=== PATIENT | female | born 1965 | race Hispanic/Latino ===

== ENCOUNTER 2021-10-28 17:45 | Observation (INO) | payer BC, OTHER ==
[~2021-10-28] VITALS: Ht 167.6 cm; Wt 98.9 kg
[~2021-10-28 17:45] MED LIST: BIOT10004 PO; OMEP40CA21 PO
[2021-10-28 18:40] LABS: BASOPHILS % (AUTO) 0.4 % (0.0-5.0); HEMATOCRIT 31.6 % (36-48); MEAN CORPUSCULAR HEMOGLOBIN 28.9 pg (27.0-33.0); MEAN CORPUSCULAR HGB CONC 32.6 g/dL (32.0-36.0); MEAN CORPUSCULAR VOLUME 88.5 fL (79-99); MONOCYTES % (AUTO) 12.3 % (3.0-13.0); NEUTROPHILS % (AUTO) 41.9 % (40.0-77.0); PLATELET COUNT (AUTO) 254 K/uL (130-400); RED BLOOD CELL COUNT(AUTO) 3.57 MIL/uL (4.00-5.50); RED CELL DISTRIBUTION WIDTH 12.2 % (11.0-15.5); WHITE BLOOD COUNT (AUTO) 8.4 K/uL (4.8-10.8)
[2021-10-28 18:50] LABS: INR 1.01 (0.85-1.15)
[2021-10-28 18:51] LABS: PARTIAL THROMBOPLASTIN TIME 23.9 SEC (26.3-35.5)
[2021-10-28] MEDS ORDERED: OMEP20TA20 PO (18:51)
[2021-10-28] MEDS ORDERED: AMOX1TAB15 PO (18:51)
[2021-10-28] MEDS ORDERED: METR-172 PO (18:51)
[2021-10-28] MEDS ORDERED: MONT-39 PO (18:51)
[2021-10-28] MEDS ORDERED: LEVO100C4 PO (18:51)
[2021-10-28] MEDS ORDERED: ASPI-1197 PO (18:51)
[2021-10-28] MEDS ORDERED: FLUT1AER IH (18:51)
[2021-10-28 19:04] LABS: ALANINE AMINOTRANSFERASE 30 U/L (12-78); ASPARTATE AMINOTRANSFERASE 44 U/L (10-37); BILIRUBIN,TOTAL 0.3 mg/dL (0.2-1.0); CARBON DIOXIDE 31 mmol/L (21-32); CHLORIDE 105 mmol/L (101-111); CREATININE 0.7 mg/dL (0.5-1.5); GLOMERULAR FILTR. RATE CALC 91 mL/min (>60); GLUCOSE,RANDOM 104 mg/dL (70-105); POTASSIUM 3.3 mmol/L (3.5-5.1); SODIUM SERUM 142 mmol/L (136-145); TOTAL PROTEIN, SERUM 7.1 g/dL (6.0-8.3); UREA NITROGEN, BLOOD 19 mg/dL (7-18)
[2021-10-28 19:09] LABS: B-TYPE NATRIURETIC PEPTIDE 30 pg/mL (0-100)
[2021-10-28] MEDS ORDERED: ACETAMINOPHEN 325 MG TAB PO PRN ×2 (19:30)
[2021-10-28] MEDS ORDERED: ONDANSETRON 4MG INJ IV PRN (19:30)
[2021-10-28] MEDS ORDERED: MORPHINE 4 MG SYG IV PRN (19:30)
[2021-10-28] MEDS ORDERED: MAG/ALUM/SIMETH 30 ML UDCUP PO PRN (19:30)
[2021-10-28] MEDS ORDERED: DIPHENHYDRAMINE HCL 25 MG CAPSULE PO PRN (19:30)
[2021-10-28] MEDS ORDERED: LACTULOSE 20 GM/30 ML UDCUP PO PRN (19:30)
[2021-10-28] MEDS ORDERED: HYDROCODONE/ACETAMINOPHEN 5/325 MG TAB PO PRN (19:30)
[2021-10-28 19:42] LABS: THYROID STIMULATING HORMONE < 0.01 uIU/mL (0.36-3.74)
[2021-10-28 19:51] LABS: ERYTHROCYTE SEDIMENTATION RATE 62 MM/HR (0-30)
[2021-10-28 19:59] LABS: HEMOGLOBIN A1C 6.1 % (4.0-6.0)
[2021-10-28] MEDS ORDERED: ALBUTEROL 0.083% 2.5 MG/3 ML INH IH PRN (20:00)
[2021-10-28 20:01] LABS: CHOLESTEROL 122 mg/dL (<200); HDL CHOLESTEROL 49 mg/dL (35-85); LDL DIRECT 59 mg/dL (0-99); TRIGLYCERIDES 68 mg/dL (30-200)
[2021-10-28] MEDS ORDERED: KCL 20 MEQ ERTAB PO ONE (23:00)
[2021-10-28 23:43] VITALS: BP 127/53
[2021-10-29 04:19] LABS: HEMATOCRIT 29.3 % (36-48); MEAN CORPUSCULAR HEMOGLOBIN 28.6 pg (27.0-33.0); MEAN CORPUSCULAR HGB CONC 32.4 g/dL (32.0-36.0); MEAN CORPUSCULAR VOLUME 88.3 fL (79-99); RED BLOOD CELL COUNT(AUTO) 3.32 MIL/uL (4.00-5.50); RED CELL DISTRIBUTION WIDTH 12.2 % (11.0-15.5); WHITE BLOOD COUNT (AUTO) 7.2 K/uL (4.8-10.8)
[2021-10-29 04:23] VITALS: BP 145/72
[2021-10-29 04:36] LABS: CREATININE 0.6 mg/dL (0.5-1.5); MAGNESIUM 1.4 mg/dL (1.80-2.40); POTASSIUM 3.6 mmol/L (3.5-5.1)
[2021-10-29] MEDS ORDERED: MAGNESIUM 2GM PREMIX 50ML 50 ML IV SCH (06:00)
[2021-10-29] MEDS: INSULIN HUMULIN R 100 UNIT/ML 3ML SQ SCH ×4 (06:03→20:53)
[2021-10-29 08:05] VITALS: BP 145/63
[2021-10-29] MEDS: ASPIRIN 81 MG EC TAB PO SCH (10:43)
[2021-10-29] MEDS: PANTOPRAZOLE 40 MG TAB DR PO SCH (10:43)
[2021-10-29] MEDS: FUROSEMIDE 20 MG TABLET PO SCH (10:44)
[2021-10-29] MEDS: ENOXAPARIN SODIUM 40 MG/0.4 ML SYRINGE SQ SCH (10:45)
[2021-10-29] MEDS: KCL 20 MEQ ERTAB PO SCH ×3 (10:46→18:04)
[2021-10-29 12:32] VITALS: BP 147/76
[2021-10-29 16:49] VITALS: BP 139/71
[2021-10-29] MEDS ORDERED: 0.9%NACL 50ML 50 ML IV ONE (18:01)
[2021-10-29] MEDS: ZOSYN 3.375GM +NS 50ML IV SCH (18:03)
[2021-10-29] MEDS: DIPHENHYDRAMINE HCL 25 MG CAPSULE PO SCH (18:04)
[2021-10-29] MEDS: SOLU-MEDROL 40MG VIAL IVP SCH (18:04)
[2021-10-29 20:01] VITALS: BP 138/78
[2021-10-30 00:21] VITALS: BP 135/79
[2021-10-30] MEDS: ZOSYN 3.375GM +NS 50ML IV SCH ×3 (01:12→17:20)
[2021-10-30] MEDS: DIPHENHYDRAMINE HCL 25 MG CAPSULE PO SCH ×2 (01:12→08:44)
[2021-10-30] MEDS: SOLU-MEDROL 40MG VIAL IVP SCH ×3 (01:12→17:20)
[2021-10-30 04:16] VITALS: BP 125/71
[2021-10-30] MEDS ORDERED: LEVOTHYROXINE 100 MCG TABLET PO SCH (06:30)
[2021-10-30 07:09] LABS: % IRON SATURATION 26.5 % (22-44)
[2021-10-30 07:28] LABS: HEMATOCRIT 32.7 % (36-48); MEAN CORPUSCULAR HEMOGLOBIN 28.8 pg (27.0-33.0); MEAN CORPUSCULAR HGB CONC 32.7 g/dL (32.0-36.0); MEAN CORPUSCULAR VOLUME 88.1 fL (79-99); PLATELET COUNT (AUTO) 247 K/uL (130-400); RED BLOOD CELL COUNT(AUTO) 3.71 MIL/uL (4.00-5.50); RED CELL DISTRIBUTION WIDTH 12.2 % (11.0-15.5)
[2021-10-30] MEDS: INSULIN HUMULIN R 100 UNIT/ML 3ML SQ SCH ×3 (07:30→16:30)
[2021-10-30 07:38] LABS: ERYTHROCYTE SEDIMENTATION RATE 74 MM/HR (0-30)
[2021-10-30 08:04] LABS: THYROID STIMULATING HORMONE < 0.01 uIU/mL (0.36-3.74)
[2021-10-30 08:37] VITALS: BP 132/61
[2021-10-30] MEDS: ASPIRIN 81 MG EC TAB PO SCH (08:44)
[2021-10-30] MEDS: PANTOPRAZOLE 40 MG TAB DR PO SCH (08:44)
[2021-10-30] MEDS: ENOXAPARIN SODIUM 40 MG/0.4 ML SYRINGE SQ SCH (08:44)
[2021-10-30] MEDS: FUROSEMIDE 20 MG TABLET PO SCH (08:45)
[2021-10-30] MEDS ORDERED: MONTELUKAST SODIUM 10 MG TAB PO SCH (09:00)
[2021-10-30] MEDS ORDERED: NON-FORMULARY MEDICATION 1 EACH (Levothyroxine Sodium (Levothyroxine) 100 MCG) PO SCH (09:00)
[2021-10-30 09:06] LABS: BAND NEUTROPHILS % (MANUAL) 1 % (0-2); LYMPHOCYTES % (MANUAL) 35 % (22-44); MAN.DIFF COMMENT-IMPRESSION MANUAL DIFFERENTIAL; SEGMENTED NEUTROPHILS % 64 % (40-70)
[2021-10-30 12:00] VITALS: BP 144/72
[2021-10-30] MEDS ORDERED: PANT40TA PO (13:04)
[2021-10-30] MEDS ORDERED: DIPH25TA20 PO (13:04)
[2021-10-30] MEDS ORDERED: PRED20TA3 PO (13:04)
[2021-10-30] MEDS ORDERED: AMOX1TAB15 PO (13:04)
[2021-10-30 16:00] VITALS: BP 135/77
== END 2021-10-30 17:00 | disposition home or self-care (01) ==
LOC: EDH 17:45 → EDHIP 17:46 → INTOOBSV 17:46 → 2AH 18:53 → EDHIP 19:57 → 2AH 23:09
PROVIDERS: ADMIT Internal Medicine; ATTEND Internal Medicine
DX: R60.0 Localized edema (principal); Z20.822 Contact with and (suspected) exposure to COVID-19; K21.9 Gastro-esophageal reflux disease without esophagitis; G47.33 Obstructive sleep apnea (adult) (pediatric); E03.9 Hypothyroidism, unspecified; M06.9 Rheumatoid arthritis, unspecified; J45.20 Mild intermittent asthma, uncomplicated; E11.9 Type 2 diabetes mellitus without complications; E66.01 Morbid (severe) obesity due to excess calories; E66.9 Obesity, unspecified; F41.9 Anxiety disorder, unspecified; Z79.899 Other long term (current) drug therapy
CPT/HCPCS: 36415 ×3; 71046; 76705; 80048; 80053; 80061; 82607; 82728; 82746; 82948 ×7; 83036; 83540; 83550; 83735; 83880 ×2; 84145; 84439; 84443 ×2; 84484; 85025; 85027 ×2; 85045; 85378; 85610; 85651 ×2; 85730; 86140; 87635; 93005; 93306; 93356; 93970; 94664; 96365; 96366 ×2; 96367; 96372 ×2; 96375; 96376; 97039; 97116 ×2; 97161; G0378 ×4; J1650 ×2; J2543 ×4; J2920 ×4; J3475; Q0163 ×3